=== PATIENT | male | born 1985 | race Caucasian/White ===

== ENCOUNTER 2025-07-16 05:55 | Day surgery (SDC) | payer BC ==
[~2025-07-16] VITALS: Ht 172.7 cm; Wt 68.0 kg
[~2025-07-16 05:55] MED LIST: CLARITIN10 M2 PO; LACTATED RINGER'S 1,000 ML IV SCH
[2025-07-16 06:20] VITALS: BP 121/72
[2025-07-16] MEDS ORDERED: IBLOOD GLUCOSE TEST STRIP 1 EA TEST VI PRN (07:00)
[2025-07-16] MEDS ORDERED: LIDOCAINE HCL 1% 5 ML SDV INJ ONE (07:00)
[2025-07-16] MEDS ORDERED: LIDOCAINE HCL 2% 5 ML SDV ONE (07:08)
--- NOTE | 2025-07-16 07:39 | NUR ---
PT NOT AVAILABLE FOR VISIT. PROVIDED PRAYER.
--- NOTE | 2025-07-16 08:04 | NUR ---
07/16/25 0804 Carrie Burgess [id number]-PATIENT ARRIVED TO PACU ON 2L NC RR EVEN NONAROUSABLE LAYING LEFT LATERAL ABDOMEN SOFT IVF INFUSING. SINUS BRADYCARDIA HR 43.
[2025-07-16 08:38] VITALS: BP 121/88
== END 2025-07-16 08:45 | disposition home or self-care (01) ==
LOC: OPS 05:55 → DS 05:55 → OPS 07:30 → DS 07:30 → OPS 08:45
PROVIDERS: ATTEND Surgery
PROC: 0DJD8ZZ Inspection of Lower Intestinal Tract, Via Natural or Artificial Opening Endoscopic (ICD-10-PCS; principal; 2025-07-16 07:30)
DX: K62.5 Hemorrhage of anus and rectum (principal); Z79.899 Other long term (current) drug therapy
CPT/HCPCS: 00811; J2003; J2704; J7121